=== PATIENT | male | born 1945 | race Caucasian/White ===

== ENCOUNTER 2018-02-12 00:18 | Emergency (ER) | payer MEDICARE, OTHER ==
[~2018-02-12] VITALS: Ht 188 cm; Wt 108.0 kg
[2018-02-12] MEDS ORDERED: LIDOCAINE 2%, 20ML SQ ONE (01:00)
[2018-02-12] MEDS ORDERED: DIPH,PERTUSS(ACELL),TET VAC/PF 0.5 ML IM-VACC ONE ×2 (01:00→01:08)
[2018-02-12] MEDS ORDERED: LIDOCAINE-MPF 2% ,5ML ONE (01:08)
[2018-02-12] MEDS ORDERED: METHOCARBAMOL 750 MG TABLET PO ONE (01:30)
[2018-02-12] MEDS ORDERED: SODIUM CHLORIDE FLUSH 10ML SYR IVF ONE (01:30)
[2018-02-12 03:02] VITALS: BP 117/82
== END 2018-02-12 03:04 | disposition home or self-care (01) ==
LOC: ED 01:40
DX: S01.21XA Laceration without foreign body of nose, initial encounter (principal); W19.XXXA Unspecified fall, initial encounter; Y93.89 Activity, other specified; Y92.89 Other specified places as the place of occurrence of the external cause; Y99.8 Other external cause status
CPT/HCPCS: 12051; 70450; 70486; 72125; 90471; 90715; 99284; 99285